=== PATIENT | female | born 1950 | race Caucasian/White ===

== ENCOUNTER 2017-03-06 06:54 | Emergency (ER) | payer MEDICARE, OTHER ==
--- NOTE | 2017-03-06 07:37 | ED Physician Documentation ---
PD HPI HEENT - Stated complaint Stated Complaint: FACIAL PAIN - Chief complaint Chief Complaint: General - History obtained from History obtained from: Patient - History of Present Illness Timing - onset: Last night Timing - duration: Hours Timing - details: Gradual onset, Now resolved Pain level max: 10 Pain level now: 0 Location: Sinuses Improves: Nothing Associated symptoms: Congestion. 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 She has an ENT at [facility] and has surgery planned for April. She has had similar episodes of pain in the sinus about 4 times previously. The pain lasts about 10 hours and resolves. She does not have symptoms to suggest advancing infection or mass. She does not have facial asymmetry or changes in vision or drainage from the nose or down the throat. She denies cough or fever. She has had pain medication in the past and does not have any now. Review of Systems Constitutional: denies: Fever, Chills, Myalgias, Fatigue Eyes: denies: Decreased vision Ears: denies: Ear pain Nose: reports: Congestion, Sinus pressure / pain. denies: Rhinorrhea / runny nose Throat: denies: Dental pain / toothache, Sore throat Cardiac: denies: Chest pain / pressure, Palpitations Respiratory: denies: Dyspnea, Cough GI: denies: Nausea, Vomiting Musculoskeletal: denies: Neck pain PD PAST MEDICAL HISTORY - Present Medications Home Medications: Ambulatory Orders Medication Instructions Recorded Confirmed HYDROcod/ACETAM 5/325 [[place] 5/325] 1 - 2 ea PO Q6H PRN #15 tablet 03/06/17 - Allergies Allergies/Adverse Reactions: Allergies Allergy/AdvReac Type Severity Reaction Status Date / Time Sulfa (Sulfonamide AdvReac Rash Verified 03/06/17 07:04 Antibiotics) - Social History Does the pt smoke?: No Smoking Status: Never smoker PD ED PE NORMAL - Vitals Vital signs reviewed: Yes (tachy and hypertensive ) - General General: Alert and oriented X 3, No acute distress, Well developed/nourished - HEENT HEENT: Atraumatic, PERRL, EOMI, Ears normal, Moist mucous membranes, Pharynx benign, Dentition benign. No: Other (There is no maxillary sinus point tenderness and no facial asymmetry.) - Neck Neck: Supple, no meningeal sign, No bony TTP - Respiratory Respiratory: No respiratory distress - Derm Derm: Normal color, Warm and dry, No rash - Extremities Extremities: No deformity, No edema - Neuro Neuro: No motor deficit, No sensory deficit - Psych Psych: Normal mood, Normal affect Results - Vitals Vitals: Vital Signs - 24 hr 03/06/17 07:02 Temperature 35.7 C L Heart Rate 109 H Respiratory 17 Rate Blood Pressure 155/93 H O2 Saturation 100 Oxygen O2 Source Room air PD MEDICAL DECISION MAKING - ED course Complexity details: considered differential, d/w patient ED course: 67 y/o female with a known maxillary sinus fungal tumor has had an episode of pain and this is now resolved. I have provided her a script for some pain medication to use as needed and she will follow up with her ENT this coming Wednesday. Departure - Departure Disposition: Home, Self Care Clinical Impression: Maxillary sinus mass Condition: Stable Instructions: Headaches Sinus Follow-Up: Margarita Ruiz MD [Primary Care Provider] - Prescriptions: HYDROcod/ACETAM 5/325 [[place] 5/325] 1 - 2 ea PO Q6H PRN #15 tablet PRN Reason: Pain Comments: Today in the Emergency Department your blood pressure was elevated. This can happen from the stress of the visit itself, from a current illness or circumstance or from uncontrolled hypertension. If you take blood pressure medications take your usual mediations, have your blood pressure re-checked in an appropriate setting and follow up any elevation with your primary care doctor.
[2017-03-06 07:58] VITALS: BP 149/85
== END 2017-03-06 07:57 | disposition home or self-care (01) ==
LOC: ED 06:54
DX: D14.0 Benign neoplasm of middle ear, nasal cavity and accessory sinuses (principal); R03.0 Elevated blood-pressure reading, without diagnosis of hypertension
CPT/HCPCS: 99283

== ENCOUNTER 2018-07-29 12:03 | Emergency (ER) | payer MEDICARE ==
--- NOTE | 2018-07-29 14:22 | XRAY Report ---
Reason: right buttock pain Procedure Date: 07/29/2018 Accession Number: [id number] / [id number] Procedure: XR - Hip w/Pelvis 2-3V RT CPT Code: FULL RESULT: EXAM: RIGHT HIP AND PELVIS RADIOGRAPHY EXAM DATE: 07/29/2018 02:02 PM. HISTORY: Right buttock pain. COMPARISONS: None. TECHNIQUE: 1 view of the pelvis and 1 view of the hip. FINDINGS: Bones: Normal. No fracture or bone lesion. Joints: The bilateral hip, pubis symphysis, and sacroiliac joints are preserved. Moderate degenerative disk disease at L4-L5. Soft Tissues: Mild atherosclerotic calcification in the bilateral superficial femoral arteries. IMPRESSION: 1. Pelvis and right hip are unremarkable. 2. Moderate degenerative disk disease at L4-L5. RADIA
--- NOTE | 2018-07-29 14:41 | ED Physician Documentation ---
PD HPI LOWER EXT INJURY - Stated complaint Stated Complaint: BUTTOCK PAIN - Chief complaint Chief Complaint: Back Pain - History obtained from History obtained from: Patient - History of Present Illness PD HPI LOW EXT INJURY LOCATION: Right, Buttock Type of injury: Other (No specific injury.) Timing - onset: How many days ago (4) Timing - duration: Days (4) Timing - details: Still present Worsened by: Moving, Palpating Associated symptoms: No: Weakness, Numbness Similar symptoms before: Has not had sx before - Treatment prior to arrival Treatment prior to arrival: Was sent from her primary physician's office. - Additional information Additional information: The patient is a 68-year-old female who presents with pain in her right but tocks. The pain started 4 days ago and has been persistent since that time. 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 She was seen in her primary physician's office, and was instructed to get an x-ray of the hip. The patient does not think she needs an x-ray, and would like merely to treat the pain. She denies fever, numbness or weakness, difficulty with urination. She denies history of similar symptoms in the past. Review of Systems Constitutional: denies: Fever, Fatigue Nose: denies: Congestion Throat: denies: Sore throat Cardiac: denies: Chest pain / pressure Respiratory: denies: Dyspnea, Cough GI: denies: Abdominal Pain, Nausea, Vomiting : denies: Dysuria Skin: denies: Rash Musculoskeletal: reports: Extremity pain (right buttock). 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 - Past Surgical History /FOUNDER AND CHIEF EXECUTIVE OFFICER: Hysterectomy - Present Medications Home Medications: Ambulatory Orders Medication Instructions Recorded Confirmed HYDROcod/ACETAM 5/325 [[place] 5/325] 1 - 2 ea PO Q6H PRN #15 tablet 03/06/17 HYDROcod/ACETAM 5/325 [Vicodin 1 - 2 ea PO Q6H PRN #15 tablet 07/29/18 5/325] Ibuprofen [Motrin] 600 mg pe 07/29/18 - Allergies Allergies/Adverse Reactions: Allergies Allergy/AdvReac Type Severity Reaction Status Date / Time Sulfa (Sulfonamide AdvReac Rash Verified 07/29/18 12:26 Antibiotics) - Social History Does the pt smoke?: No Smoking Status: Never smoker Does the pt drink ETOH?: No Does the pt have substance abuse?: No - Immunizations Immunizations are current?: Yes - POLST Patient has POLST: No PD ED PE NORMAL - Vitals Vital signs reviewed: Yes (hypertensive) - General General: Alert and oriented X 3, Well developed/nourished - HEENT HEENT: Atraumatic - Neck Neck: No bony TTP, No adenopathy, No JVD - Cardiac Cardiac: RRR - Respiratory Respiratory: No respiratory distress, Clear bilaterally - Abdomen Abdomen: Soft, Non tender - Back Back: No CVA TTP, No spinal TTP - Derm Derm: No rash - Extremities Extremities: No edema, No calf tenderness / cord, Other (There is tenderness to palpation over the right gluteal region, without ecchymosis or mass palpated. She has full range of motion of the hip, including internal and external rotation. Distal neurovascular is intact.) - Neuro Neuro: Alert and oriented X 3, No motor deficit, No sensory deficit Results - Vitals Vitals: Oxygen O2 Source Room air - Rads (name of study) Right hip and pelvis Radiology: Prelim report reviewed, EMP read contemporaneously, See rad report (Right hip and pelvis are unremarkable. Moderate degenerative disc disease at L4-5.) PD MEDICAL DECISION MAKING - ED course Complexity details: reviewed results, re-evaluated patient, considered differential, d/w patient ED course: The patient's presentation is most consistent with strain of the right tibial musculature. There is no bony abnormality on x-ray examination of the right hip and pelvis. Her examination does not suggest referred pain from lower back injury. She is being discharged with prescription for Vicodin, 15 tablets. I discussed with her symptomatic treatment, outpatient follow-up, as well as potentially worrisome signs or symptoms that should prompt reevaluation in the emergency department. - Sepsis Event Vital Signs: Oxygen O2 Source Room air Departure - Departure Disposition: 01 Home, Self Care Clinical Impression: Right buttock pain Condition: Stable Instructions: ED Strain Muscle Ext Follow-Up: Margarita Ruiz MD [Primary Care Provider] - Prescriptions: HYDROcod/ACETAM 5/325 [Vicodin 5/325] 1 - 2 ea PO Q6H PRN #15 tablet PRN Reason: Pain Comments: Apply ice pack to the sore area intermittently for the next 3 days. Continue using ibuprofen, up to 800 mg 3 times daily for its anti-inflammatory effect. You can use Vicodin as prescribed if needed for pain. Let pain be your guide to activity level. Follow-up with your primary physician within 2 weeks. Call to schedule appointment. Return to the emergency department if you develop increasing pain, or otherwise worsening symptoms. Discharge Date/Time: 07/29/18 14:52
[2018-07-29 14:50] VITALS: BP 142/73
== END 2018-07-29 14:52 | disposition home or self-care (01) ==
LOC: ED 12:03
DX: R52 Pain, unspecified (principal); E11.9 Type 2 diabetes mellitus without complications
CPT/HCPCS: 99283

== ENCOUNTER 2019-10-17 08:00 | Outpatient (CLI) | payer MEDICARE | END 2019-10-17 23:59 | disposition home or self-care (01) | LOC: LAB.R 08:00 | PROVIDERS: ATTEND Internal Medicine | DX: J02.9 Acute pharyngitis, unspecified (principal) | CPT/HCPCS: 87070; 87430 ==

== ENCOUNTER 2023-05-05 21:26 | Outpatient (CLI) | payer MEDICARE | END 2023-05-05 23:59 | disposition EMS.NT | LOC: EMS 21:26 | DX: R41.0 Disorientation, unspecified (principal); R62.7 Adult failure to thrive; Z58.89 Other problems related to physical environment ==

== ENCOUNTER 2023-05-05 22:45 | Emergency (ER) | payer MEDICARE ==
--- NOTE | 2023-05-05 23:11 | ED Physician Documentation ---
PD HPI MHE - Stated complaint Stated Complaint: NUHA/WANDERER - Chief complaint Chief Complaint: MHE - History obtained from History obtained from: Patient, EMS, Police - Additional information Additional information: Patient is brought to the ED by police. HPI is primarily from police, as patient is confused. Patient tells me she does not know why she was brought to the emergency department. Patient says that she was at home asleep, and was woken when someone came to her door and told her she had to go to the emergency department. Police indicate (both on NUHA form as well as in-person discussion between myself and the officer that brought patient to ED) that a neighbor called 911 due to patient wandering around outside of her house. When the neighbor approached the patient, the patient indicated that her daughter had just been raped and her son-in-law was murdered. The police captain says he is familiar with this patient from previous 911 calls regarding increasingly frequent episodes of confusion. 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 Despite this, the patient insists that she continues to work for [employer], saying that she worked just a few days ago. The police indicate to me that they contact the patient's daughter who corroborates increasing confusion exhibited by the patient; the daughter indicated that the patient has not worked for approximately 10 years. Police indicate the patient lives alone with many cats, and that the patient's house is cluttered with garbage to the point of making it difficult to navigate around the house. They also indicate that the patient has a [employer] mini bus that is also completely full of garbage and items suggestive of hoarding behavior. On my HPI, patient repeatedly indicates that she feels fine and is requesting discharge home. She exhibits repetitive speech patterns, such as repeatedly apologizing for "wasting her time on a busy Wednesday night", and telling me that she works for [employer]. 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 : None Psych: None Musculoskeletal: None Derm: None - Past Surgical History /STEREOPTIC PROJECTION TOPOGRAPHER: Hysterectomy - Present Medications Home Medications: Ambulatory Orders Medication Instructions Recorded Confirmed Metformin HCl [Metformin ER 500 mg PO DAILY 05/05/23 05/05/23 Osmotic] - Allergies Allergies/Adverse Reactions: Allergies Allergy/AdvReac Type Severity Reaction Status Date / Time Sulfa (Sulfonamide AdvReac Rash Verified 05/05/23 23:19 Antibiotics) - Social History Does the pt smoke?: No Smoking Status: Former smoker Does the pt drink ETOH?: No Does the pt have substance abuse?: No - Immunizations Immunizations are current?: Yes - POLST Patient has POLST: No PD ED PE NORMAL - Vitals Vital signs reviewed: Yes - General General: No acute distress, Well developed/nourished, Other (awake, alert, oriented x 1 (oriented to self; knows she is in a hospital but not which one nor which town/city, and says the year is 2019)) - HEENT HEENT: Atraumatic, PERRL, EOMI - Neck Neck: Supple, no meningeal sign - Cardiac Cardiac: RRR, No murmur - Respiratory Respiratory: No respiratory distress, Clear bilaterally - Abdomen Abdomen: Soft, Non tender - Derm Derm: Normal color, Warm and dry - 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3 L [place] # (Auto) 0.3 Eos # (Auto) 0.2 Baso # (Auto) 0.0 Absolute Nucleated RBC 0.00 Nucleated RBC % 0.0 Sodium 139 Potassium 3.6 Chloride 106 Carbon Dioxide 24 Anion Gap 9.0 BUN 17 Creatinine 1.0 Estimated GFR (MDRD) 55 L Glucose 190 H Calcium 9.2 Total Bilirubin 2.5 H AST 22 ALT 15 Alkaline Phosphatase 74 Total Protein 7.4 Albumin 4.5 Globulin 2.9 Albumin/Globulin Ratio 1.6 Lipase 43 TSH Urine Color YELLOW Urine Clarity CLEAR Urine pH 6.0 Ur Specific [place] >=1.030 H Urine Protein TRACE Urine Glucose (UA) NEGATIVE Urine Ketones 40 H Urine Occult Blood NEGATIVE Urine Nitrite NEGATIVE Urine Bilirubin NEGATIVE Urine Urobilinogen 2 H Ur Leukocyte Esterase SMALL H Urine RBC None Seen Urine WBC 4-5 Ur Squamous Epith Cells FEW Squamous Urine Bacteria Few Urine Mucus Moderate Strands Ur Microscopic Review INDICATED Urine Culture Comments INDICATED Salicylates < 6.0 Urine Opiates Screen NEGATIVE Ur Oxycodone Screen NEGATIVE Urine Methadone Screen NEGATIVE Ur Propoxyphene Screen NEGATIVE Acetaminophen < 10 L Ur Barbiturates Screen NEGATIVE Ur Tricyclics Screen NEGATIVE Ur Phencyclidine Scrn NEGATIVE Ur Amphetamine Screen NEGATIVE U Methamphetamines Scrn NEGATIVE U Benzodiazepines Scrn NEGATIVE Urine Cocaine Screen NEGATIVE U Cannabinoids Screen NEGATIVE Ethyl Alcohol < 5.0 05/05/23 23:55 WBC RBC Hgb Hct MCV MCH MCHC RDW Plt Count MPV Neut # (Auto) Lymph # (Auto) [place] # (Auto) Eos # (Auto) Baso # (Auto) Absolute Nucleated RBC Nucleated RBC % Sodium Potassium Chloride Carbon Dioxide Anion Gap BUN Creatinine Estimated GFR (MDRD) Glucose Calcium Total Bilirubin AST ALT Alkaline Phosphatase Total Protein Albumin Globulin Albumin/Globulin Ratio Lipase TSH 1.54 Urine Color Urine Clarity Urine pH Ur Specific [place] Urine Protein Urine Glucose (UA) Urine Ketones Urine Occult Blood Urine Nitrite Urine Bilirubin Urine Urobilinogen Ur Leukocyte Esterase Urine RBC Urine WBC Ur Squamous Epith Cells Urine Bacteria Urine Mucus Ur Microscopic Review Urine Culture Comments Salicylates Urine Opiates Screen Ur Oxycodone Screen Urine Methadone Screen Ur Propoxyphene Screen Acetaminophen Ur Barbiturates Screen Ur Tricyclics Screen Ur Phencyclidine Scrn Ur Amphetamine Screen U Methamphetamines Scrn U Benzodiazepines Scrn Urine Cocaine Screen U Cannabinoids Screen Ethyl Alcohol - Rads (name of study) CTH Relevant Findings:: Prelim report reviewed, See rad report PD Medical Decision Making - ED course Complexity details: reviewed results, re-evaluated patient, considered differential, d/w patient ED course: Tests ordered and results reviewed by me: CBC, ER abdominal panel, TSH, CTH. Normal CBC and TSH. She has an elevated blood sugar (190), would not account for any symptoms. She has an isolated elevated bilirubin (2.5); no other abnormal LFTs and lipase is normal. As an isolated finding regarding the liver function test, this is also a noncontributory finding. CT head is performed and there are age-related changes but no acute findings (radiologist interpretation includes "findings consistent with chronic sinusitis left maxillary sinus", which, again, would be a noncontributory/coincident finding). Patient is confused on my exam as well as on multiple reevaluations throughout the overnight stay. She is pleasant and calm, but occasionally wandering outside of her room to the desk asking about why she was brought to the ER, asking for discharge home. She repeatedly mentions that she works for [employer]. I attempted to contact the patient's daughter but no rock picker; I left a message on asking her to call ED (Mira, patient's daughter per contact information o [employer]). Police indicate to me that they did contact the patient's daughter who plans on coming to ED in the morning. Given the report from police that the patient has been slowly exhibiting incre asing episodes of confusion, and the lack of findings on tonight's work-up to suggest a specific etiology, I strongly suspect dementia Plan is to hold patient until a social work consult in the morning. At this time, the information I have would indicate the patient is not safe for discharge home alone. Hopefully, when family arrives later in the morning, further information can be obtained and a plan for a safe and appropriate disposition can be made. At this time, there is no indication for inpatient medical treatment. Care of patient turned over to oncoming ED physician (Dr. Santana) pending SW consult.
[2023-05-05 23:57] LABS: MUDS CUTOFF CONCENTRATIONS CUTOFF CONC BELOW:
[2023-05-05 23:58] LABS: BILIRUBIN,URINE NEGATIVE (NEGATIVE); GLUCOSE, URINE (UA) NEGATIVE (NEGATIVE); KETONES,URINE (UA) 40 mg/dL (NEGATIVE); LEUKOCYTE ESTERASE, URINE SMALL (NEGATIVE); NITRITE,URINE NEGATIVE (NEGATIVE); OCCULT BLOOD,URINE NEGATIVE (NEGATIVE); PROTEIN,URINE TRACE mg/dL (NEGATIVE); UROBILINOGEN,URINE 2 E.U./dL (NORMAL)
[2023-05-06] LABS: BASOPHILS % (AUTO) 0.8 %; EOSINOPHILS # (AUTO) 0.2 10^3/uL (0.0-0.7); EOSINOPHILS % (AUTO) 3.2 %; HCT - HEMATOCRIT 38.2 % (37.0-47.0); HGB - HEMOGLOBIN 12.7 g/dL (12.0-16.0); LYMPHOCYTES # (AUTO) 1.3 10^3/uL (1.5-3.5); LYMPHOCYTES % (AUTO) 26.2 %; MEAN CORPUSCULAR HEMOGLOBIN 29.6 pg (27.0-31.0); MEAN CORPUSCULAR HGB CONC 33.2 g/dL (32.0-36.0); MEAN PLATELET VOLUME 8.6 fL (7.9-10.8); MONOCYTES # (AUTO) 0.3 10^3/uL (0.0-1.0); MONOCYTES % (AUTO) 6.6 %; NEUTROPHILS # (AUTO) 3.1 10^3/uL (1.5-6.6); NEUTROPHILS % (AUTO) 62.8 %; PLT - PLATELET COUNT 167 10^3/uL (130-450); RED BLOOD COUNT 4.29 10^6/uL (4.20-5.40); RED CELL DISTRIBUTION WIDTH 12.1 % (12.0-15.0)
[2023-05-06 00:06] LABS: CLARITY,URINE CLEAR (CLEAR)
[2023-05-06 00:07] LABS: AMPHETAMINE SCREEN,URINE NEGATIVE (NEGATIVE); BACTERIA,URINE Few /HPF (None Seen); COCAINE SCREEN URINE NEGATIVE (NEGATIVE); METHAMPHETAMINES SCREEN, URINE NEGATIVE (NEGATIVE); MUCUS,URINE Moderate Strands; OPIATE SCREEN, URINE NEGATIVE (NEGATIVE); RBC,URINE None Seen /HPF (0-5); SQUAMOUS EPITHELIAL CELL,UR FEW Squamous (<= Few); THC CANNABINOID SCREEN, URINE NEGATIVE (NEGATIVE)
[2023-05-06 00:08] LABS: BARBITURATE SCREEN,UR NEGATIVE (NEGATIVE); BENZODIAZEPINES SCREEN, URINE NEGATIVE (NEGATIVE); METHADONE SCREEN, URINE NEGATIVE (NEGATIVE); OXYCODONE SCREEN, URINE NEGATIVE (NEGATIVE); PROPOXYPHENE SCREEN, URINE NEGATIVE (NEGATIVE); TRICYCLIC ANTIDEPRESSANT,URINE NEGATIVE (NEGATIVE)
[2023-05-06 00:13] LABS: ACETAMINOPHEN < 10 ug/mL (10-30); ALBUMIN 4.5 g/dL (3.2-5.5); ALBUMIN/GLOBULIN RATIO 1.6 (1.0-2.2); ALKALINE PHOSPHATASE 74 IU/L (42-121); ALT ALANINE AMINOTRANSFERASE 15 IU/L (10-60); AST ASPARTATE AMINOTRANSFERASE 22 IU/L (10-42); BILIRUBIN,TOTAL 2.5 mg/dL (0.2-1.0); BUN - BLOOD UREA NITROGEN 17 mg/dL (6-20); CALCIUM 9.2 mg/dL (8.5-10.3); CARBON DIOXIDE - CO2 24 mmol/L (21-32); CHLORIDE 106 mmol/L (101-111); ETOH - ETHANOL < 5.0 mg/dL; GFR - MDRD 55 (>89); GLUCOSE 190 mg/dL (70-100); LIPASE 43 U/L (22-51); POTASSIUM 3.6 mmol/L (3.5-5.0); SALICYLATE < 6.0 mg/dL; SODIUM 139 mmol/L (135-145); TOTAL PROTEIN 7.4 g/dL (6.7-8.2)
--- NOTE | 2023-05-06 00:38 | CT Report ---
PROCEDURE: HEAD WO INDICATIONS: AMS TECHNIQUE: Noncontrast 4.5 mm thick angled axial sections acquired from the foramen magnum to the vertex. For r adiation dose reduction, the following was used: automated exposure control, adjustment of mA and/or kV according to patient size. COMPARISON: None. FINDINGS: Image quality: Excellent. CSF spaces: There is moderate cerebral volume loss with prominence of the ventricles and sulci. Basa l cisterns are patent. No extra-axial fluid collections. Brain: No intracranial hemorrhage, mass, or mass effect. Dominguez-white matter interface is preserved. T here are subcortical and periventricular white matter hypodensities consistent with moderate chronic small vessel ischemic changes. Skull and face: Calvarium and visualized facial bones are intact, without suspicious lesions. Sinuses: Visualized sinuses demonstrate mucosal opacification of the visualized left maxillary sinus and medial left nasal cavity with heterogeneous areas of high density in internal calcifications. Suman ny remodeling also demonstrated on the left maxillary sinus wall. Findings consistent with sequelae o f chronic sinusitis. Mastoid air cells are clear. IMPRESSION: 1. No acute intracranial abnormality. 2. Moderate cerebral volume loss and chronic white matter small vessel ischemic changes. 3. Findings consistent with chronic sinusitis in the left maxillary sinus. Reviewed by: Jean Krishnamurthy MD on 05/06/2023 12:37 AM PDT Approved by: Jean Krishnamurthy MD on 05/06/2023 12:37 AM PDT Station ID: [id number]
--- NOTE | 2023-05-06 09:40 | ED Physician Documentation ---
ED Addendum - Addendum Addendum: Patient signed out to me by overnight physician. Patient appears to have a history of dementia and may no longer be safe at her home. Per report that her daughter lives in [place] and is coming to the emergency department sometime today. A social work consult has been placed. Patient has been pleasant and cooperative but does tend to wander in the hallway. She is easily Redirectable. 05/06/23 12:12 Family is here with patient but she is getting increasingly frustrated with not being able to wander around the emergency department or to go outside. I have ordered a p.o. dose of Zyprexa To help with his agitation. Pt signed out to oncoming provider at shift change.
[2023-05-06] MEDS: OLANZapine ODT 5 MG TABLET TL ONE ×2 (12:18)
[2023-05-06] MEDS ORDERED: OLANZapine ODT 5 MG TABLET TL ONE (12:19)
[2023-05-06] MEDS ORDERED: metFORMIN 500 MG TABLET PO STA (19:25)
[2023-05-06] MEDS ORDERED: metFORMIN 500 MG TABLET ONE (19:39)
[2023-05-07] MEDS: metFORMIN 500 MG TABLET PO SCH ×2 (10:31→17:57)
--- NOTE | 2023-05-07 10:43 | ED Physician Documentation ---
ED Addendum - Addendum Addendum: 05/07/23 10:43 Patient has woken up this morning and has been wandering frequently including able to elope from the emergency department and found in other areas of the hospital twice this morning.There is no family present to sit with her and no staff available to act as a sitter. Patient at times is getting agitated as she is not allowed to wander. We will give a dose of Zyprexa PO to see if this helps calm her. We will also try other measures to entertain or distract patient. 05/07/23 16:16 Patient eloped from the emergency department. She was found but is not easily redirectable back to the emergency department. This requires chemical sedation to get her back to the ED. 05/07/23 17:02 [facility] has been here to see the patient and can take her today. They have requested I fill out some paperwork for some basic orders to last through the weekend and then they will also send the paperwork to Dr. Ruiz next week as this is her PCP for more specific instructions. Patient was placed into the seclusion room due to her numerous elopements today.However this appears to have further agitated the patient and she is yelling and screaming and banging on the door. IM Zyprexa was also ordered. 05/07/23 18:44 Patient has been taken out of the seclusion room as she was yelling and screaming out repeatedly. With the help of paramedics we were able to get her in to bed 5 and have placed soft restraints As she continues to be an elopement risk and there are concerns for her safety.I feel that the seclusion room was making her symptoms worse and thus we are trying this option. I have left voicemails for Albin and Mira who are listed as her next of kin in her chart as neither have answered their phones. 05/07/23 19:20 At shift change patient remains boarding in the emergency department awaiting safe disposition. From recent notes it appears that she has been accepted to home place but they are waiting paperwork from the family.Patient will be signed out to the oncoming provider.
[2023-05-07] MEDS ORDERED: OLANZapine ODT 5 MG TABLET TL STA (10:44)
[2023-05-07] MEDS ORDERED: HALOPERIDOL 5 MG/ML VIAL IM STA ×2 (16:15)
[2023-05-07] MEDS ORDERED: HALOPERIDOL 5 MG/ML VIAL ONE (16:23)
--- NOTE | 2023-05-07 16:28 | ED Physician Documentation ---
Restraint [id number] - Immediate Situation Face to Face Evaluation Date: 05/07/23 Face to Face Evaluation Time: 16:26 Restraint Classification: Violent, chemical Restraint Type: Chemical, Seclusion - Behavioral Condition Attitude: Indifferent Behavior: Uncooperative Orientation: Person Mood: Angry - Evaluation Review of Systems: Unable to obtain due to dementia Pertinent History/Illicit Drugs/Medications/Results: Dementia - Plan Need to Continue or Terminate Violent or Chemical Restraint: Will DC once it is physically safe for patient and for staff to do so.
[2023-05-07] MEDS ORDERED: OLANZapine 10 MG VIAL IM ONE (17:44)
--- NOTE | 2023-05-07 17:45 | ED Physician Documentation ---
Restraint [id number] - Immediate Situation Face to Face Evaluation Date: 05/07/23 Face to Face Evaluation Time: 17:44 Restraint Classification: Violent, chemical Restraint Type: Seclusion - Behavioral Condition Attitude: Indifferent Behavior: Agitated Orientation: Disoriented to all Mood: Angry Behavioral Condition Comments: Yelling and banging on seclusion room doors yelling "help" - Evaluation Review of Systems: Unable to obtain due to dementia Pertinent History/Illicit Drugs/Medications/Results: Dementia - Plan Need to Continue or Terminate Violent or Chemical Restraint: DC seclusion and restraints once it is safe to do so.
--- NOTE | 2023-05-07 19:32 | ED Physician Documentation ---
ED Addendum - Addendum Addendum: 05/08/23 02:12 Patient received a signout from outgoing physician, please see their do cumentation for further detail. In short patient 73-year-old female presenting with dementia with behavioral disturbance. Labs and imaging reviewed, patient monitored carefully throughout the entirety of my shift. Found to be resting comfortably and in no acute distress. Did not require medications for chemical calming overnight. Will be signing out to the oncoming physician, please See their documentation for further detail.
[2023-05-08] MEDS: metFORMIN 500 MG TABLET PO SCH (09:58)
[2023-05-08] MEDS ORDERED: OLANZapine ODT 5 MG TABLET TL ONE (11:09)
[2023-05-08] MEDS ORDERED: cephALEXin 250 MG CAPSULE PO STA (12:51)
--- NOTE | 2023-05-08 12:53 | ED Physician Documentation ---
ED Addendum - Addendum Addendum: 05/08/23 12:56 Apryl Newsome Is a 73-year-old female with a history of dementia. She presented to the emergency department 3 days ago with increasing confusion and behavioral disturbance. She has been started on Zyprexa in our department and she is now returning to home prior to being placed. Today on examination it is noted she has an area where it appears her sandals are abrading against the side of her foot and she appears to have a superficial infection along the medial aspect of the left foot. She is placed onto some Keflex with this. Impression: Dementia with behavioral disturbance, cellulitis left foot. Plan: Discharge to home in care of family. arrangements are being made for the placement of the patient into an adult home. In the meantime she will go home with her family today. She is prescribed both Zyprexa and Keflex.
[2023-05-08 13:32] VITALS: BP 155/78
== END 2023-05-08 13:44 | disposition home or self-care (01) ==
LOC: ED 22:45
DX: F03.918 Unspecified dementia, unspecified severity, with other behavioral disturbance (principal); L03.116 Cellulitis of left lower limb; E11.9 Type 2 diabetes mellitus without complications; Z87.891 Personal history of nicotine dependence; Z79.84 Long term (current) use of oral hypoglycemic drugs
CPT/HCPCS: 36415; 70450; 80053; 80306; 80307; 81001; 83690; 84443; 85025; 87086; 96372; 99284; 99285; A9270; G0480; 80320; 80329; 81003

== ENCOUNTER 2023-06-15 13:18 | Outpatient (CLI) | payer MEDICARE | END 2023-06-15 23:59 | disposition critical access hospital (66) | LOC: EMS 13:18 | DX: M79.89 Other specified soft tissue disorders (principal); M79.675 Pain in left toe(s) | CPT/HCPCS: A0425; A0429 ==

== ENCOUNTER 2023-06-15 13:38 | Emergency (ER) | payer MEDICARE ==
--- NOTE | 2023-06-15 13:45 | ED Physician Documentation ---
History of Present Illness - Stated complaint Stated Complaint: L FOOT INFECTION - Additonal information Additional information: 73-year-old female who has a history of dementia and resides at home place of [place] presents to the emergency department for evaluation of 2 weeks left great toe wound which per the nursing staff has begun to have a purulent foul- smelling drainage. Due to the patient's history of dementia history is extremely limited. She did not arrive to the ED with paperwork from home place. A nurse to nurse phone call revealed no history of anticoagulation. Chart review reveals patient has a history of dementia with behavioral disturbance, right breast cancer. Seen recently in this emergency department for left foot infection though documentation is not clear whether it is really related to the great toe. 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 - Present Medications Home Medications: Ambulatory Orders Medication Instructions Recorded Confirmed Metformin HCl [Metformin ER 500 mg PO DAILY 05/05/23 05/05/23 Osmotic] OLANZapine ODT [Zyprexa Odt] 5 mg TL Q8HR PRN #12 tablet 05/08/23 cephALEXin [Keflex] 500 mg PO Q6H #28 cap 05/08/23 cephALEXin [Keflex] 500 mg PO Q6H #28 cap 06/15/23 - Allergies Allergies/Adverse Reactions: Allergies Allergy/AdvReac Type Severity Reaction Status Date / Time Sulfa (Sulfonamide AdvReac Rash Verified 05/05/23 23:19 Antibiotics) - Social History Does the pt smoke?: No Smoking Status: Former smoker Does the pt drink ETOH?: No Does the pt have substance abuse?: No - Immunizations Immunizations are current?: Yes - POLST Patient has POLST: No PD ED PE EXPANDED - General General: Alert, No acute distress, Well developed/nourished - Extremities Extremities: Left foot (2+ DP pulse. Left great toe with large area of ulceration along the lateral region and hypertrophic skin growth. Moderate amount of serous drainage. Appears nontender to palpation. Grossly hypertrophic nail.) Results - Vitals Vitals: Oxygen O2 Source Room air PD Medical Decision Making - ED course Complexity details: reviewed results, re-evaluated patient, considered differential, d/w patient ED course: 73-year-old female who has a history of significant dementia and behavioral disturbance presents the emergency department for evaluation of a left great toe wound that has been present for about 2 weeks. Nursing staff at her [facility] care facility was unable to reach the PCP therefore she was transported to the ER. On exam she has a grossly hypertrophic nail with lateral cuticle edge swelling and serous drainage as well as hypertrophic skin tissue. I suspect this has been a chronically ingrown nail that subsequently got infected. I attempted to obtain an x-ray for evaluation of osteomyelitis though the patient would not allow it to be completed. I do not feel at this juncture it would be necessary to chemically or physically restrain the patient to obtain this imaging. However in the short-term we will start her on an antibiotic, Keflex. She should also be referred to podiatry for further evaluation as she would likely benefit from nail removal. The usual emergent return precautions were discussed for worsening symptoms. Patient will be transported back to her [facility] facility via BLS ambulance as she does pose a significant flight/elopement risk. Departure - Departure Disposition: 01 Home, Self Care Clinical Impression: Infection of great toe Condition: Stable Record reviewed to determine appropriate education?: Yes Prescriptions: cephALEXin [Keflex] 500 mg PO Q6H #28 cap Comments: Apryl was seen in the emergency department because she has had a toe infection for several weeks. Unfortunately we could not obtain the x-ray as she would not allow it and it was not felt medically necessary to physically or chemically restrain her in order to obtain the x-ray. She should be referred to a electrical engineer mep in follow-up of this toe infection. In the short-term she will be started on Keflex and antibiotic. This has been sent to [facility]. Return to the ER for any new or worsening symptoms.
[2023-06-15 14:07] VITALS: BP 170/91; O2SAT 99
== END 2023-06-15 18:55 | disposition home or self-care (01) ==
LOC: EDUNIT# → ED 13:38
DX: L03.032 Cellulitis of left toe (principal); F03.918 Unspecified dementia, unspecified severity, with other behavioral disturbance; E11.9 Type 2 diabetes mellitus without complications; Z79.84 Long term (current) use of oral hypoglycemic drugs; Z87.891 Personal history of nicotine dependence
CPT/HCPCS: 99283

== ENCOUNTER 2023-06-15 18:25 | Outpatient (CLI) | payer MEDICARE | END 2023-06-15 23:59 | disposition home or self-care (01) | LOC: EMS 18:25 | PROVIDERS: ATTEND Registered Nurse | DX: R41.0 Disorientation, unspecified (principal) | CPT/HCPCS: A0425; A0428 ==

== ENCOUNTER 2024-01-11 08:00 | Outpatient (CLI) | payer MEDICARE | END 2024-01-11 23:59 | disposition home or self-care (01) | LOC: PC 08:00 | PROVIDERS: ATTEND Nurse Practitioner Gerontology | DX: Z51.5 Encounter for palliative care (principal); F03.918 Unspecified dementia, unspecified severity, with other behavioral disturbance; R63.4 Abnormal weight loss; Z85.3 Personal history of malignant neoplasm of breast; E11.9 Type 2 diabetes mellitus without complications; Z66 Do not resuscitate; Z79.84 Long term (current) use of oral hypoglycemic drugs; R32 Unspecified urinary incontinence; R15.9 Full incontinence of feces | CPT/HCPCS: 99349 ==

== ENCOUNTER 2024-01-30 08:00 | Outpatient (CLI) | payer MEDICARE | END 2024-01-30 23:59 | disposition home or self-care (01) | LOC: PC 08:00 | PROVIDERS: ATTEND Nurse Practitioner Gerontology | DX: Z51.5 Encounter for palliative care (principal); F03.90 Unspecified dementia, unspecified severity, without behavioral disturbance, psychotic disturbance, mood disturbance, and anxiety | CPT/HCPCS: 99426 ==

== ENCOUNTER 2024-02-10 17:47 | Outpatient (CLI) | payer MEDICARE | END 2024-02-10 23:59 | disposition short-term general hospital (02) | LOC: EMS 17:47 | DX: M25.551 Pain in right hip (principal); W18.30XA Fall on same level, unspecified, initial encounter; Y92.092 Bedroom in other non-institutional residence as the place of occurrence of the external cause; F03.90 Unspecified dementia, unspecified severity, without behavioral disturbance, psychotic disturbance, mood disturbance, and anxiety | CPT/HCPCS: A0425; A0427 ==

== ENCOUNTER 2024-03-10 10:00 | Outpatient (CLI) | payer MEDICARE | END 2024-03-10 23:59 | disposition home or self-care (01) | LOC: PC 10:00 | PROVIDERS: ATTEND Nurse Practitioner Gerontology | DX: Z51.5 Encounter for palliative care (principal); R63.0 Anorexia; R53.83 Other fatigue; F03.90 Unspecified dementia, unspecified severity, without behavioral disturbance, psychotic disturbance, mood disturbance, and anxiety; R40.0 Somnolence; Z96.641 Presence of right artificial hip joint; Z79.899 Other long term (current) drug therapy; Z63.8 Other specified problems related to primary support group; Z66 Do not resuscitate | CPT/HCPCS: 99310 ==